=== PATIENT | male | born 1950 | race Asian ===

== ENCOUNTER 2018-03-17 14:01 | Emergency (ER) | payer MEDICARE, OTHER ==
[~2018-03-17] VITALS: Ht 170.2 cm; Wt 118.2 kg
[~2018-03-17 14:01] MED LIST: ASPI81TA87 PO; ATEN-187 PO; FURO40TA5 PO; GLYB2.5T5 PO; LISI10TA; OMEP20TA2 PO; POTA8CAP10 PO; VITAMINS
[2018-03-17 15:03] LABS: GLUCOSE,POINT OF CARE 154 MG/DL (70-110)
[2018-03-17] MEDS ORDERED: IPRATROPIUM BROMIDE 0.5 MG/2.5 ML NEB SOLUTION NEB ONE (15:15)
[2018-03-17] MEDS ORDERED: ALBUTEROL SULFATE 2.5 MG/0.5 ML NEB SOLUTION NEB ONE (15:15)
[2018-03-17] MEDS ORDERED: ACETAMINOPHEN 500 MG TABLET PO ONE (15:15)
[2018-03-17] MEDS ORDERED: CARV6 PO (15:16)
[2018-03-17] MEDS ORDERED: ATOR40TA28 PO (15:16)
[2018-03-17] MEDS ORDERED: AMLO-512 PO (15:16)
[2018-03-17] MEDS ORDERED: ALLO300 PO (15:16)
[2018-03-17] MEDS ORDERED: CLON-570 PO (15:19)
[2018-03-17] MEDS ORDERED: FAMO20 PO (15:19)
[2018-03-17] MEDS ORDERED: FLUT16H NASAL (15:19)
[2018-03-17] MEDS ORDERED: MONT10TA21 PO (15:19)
[2018-03-17] MEDS ORDERED: VITAD1000 PO (15:19)
[2018-03-17] MEDS ORDERED: LACT1CAP62 PO (15:19)
[2018-03-17] MEDS ORDERED: INSU100V SQ (15:19)
[2018-03-17] MEDS ORDERED: LORazepam 2 MG/ML VIAL IM ONE (15:30)
[2018-03-17 15:51] LABS: BASOPHILS % (AUTO) 2.2 % (0.0-2.0); EOSINOPHILS % (AUTO) 12.5 % (1.0-6.0); HEMATOCRIT 41.2 % (41-53); HEMOGLOBIN 13.4 g/dL (13.5-17.5); LYMPHOCYTES # (AUTO) 1.7 K/uL (1.0-4.8); LYMPHOCYTES % (AUTO) 19.2 % (22.0-44.0); MEAN CORPUSCULAR HEMOGLOBIN 27.9 pg (26.0-34.0); MEAN CORPUSCULAR HGB CONC 32.5 G/dL (31.0-37.0); MEAN CORPUSCULAR VOLUME 86 fL (80-100); MONOCYTES # (AUTO) 0.7 K/uL (0.1-1.0); MONOCYTES % (AUTO) 8.3 % (2.0-9.0); NEUTROPHILS # (AUTO) 5.2 K/uL (1.8-7.7); NEUTROPHILS % (AUTO) 57.8 % (40.0-70.0); PLATELET COUNT (AUTO) 345 K/uL (150-450)
[2018-03-17 16:01] LABS: CALCIUM, TOTAL 8.1 mg/dL (8.8-10.5); CREATININE 4.05 mg/dL (0.60-1.30); POTASSIUM 4.2 mmol/L (3.5-5.1)
[2018-03-17 16:07] LABS: BILIRUBIN,TOTAL 0.4 mg/dL (0.1-1.0); TOTAL PROTEIN, SERUM 7.3 g/dL (6.4-8.2)
[2018-03-17 16:12] LABS: TROPONIN I 0.05 ng/mL (0.00-0.05)
[2018-03-17] MEDS ORDERED: DiphenhydrAMINE HCL 50 MG/ML VIAL IM ONE (16:15)
[2018-03-17] MEDS ORDERED: HALOPERIDOL LACTATE 5 MG/ML VIAL IM ONE (16:15)
[2018-03-17 17:48] LABS: APPEARANCE,URINE CLEAR (CLEAR); BILIRUBIN,URINE NEGATIVE (NEGATIVE); GLUCOSE, URINE (UA) 250 mg/dL (NEGATIVE); KETONES,URINE TRACE mg/dL (NEGATIVE); LEUKOCYTE ESTERASE ,URINE NEGATIVE (NEGATIVE); NITRATE,URINE NEGATIVE (NEGATIVE); OCCULT BLOOD,URINE LARGE (NEGATIVE); PROTEIN,URINE SEE CONFIRM (NEGATIVE); UROBILINOGEN,URINE 0.2 mg/dL (<=1.0)
[2018-03-17 17:55] LABS: SULFOSALICYLIC ACID,URINE 4+ (Negative)
[2018-03-17 17:56] LABS: BACTERIA,URINE Few /HPF (None Seen); SQUAMOUS EPITHELIAL CELL,UR Few /LPF (None Seen)
[2018-03-17 18:10] LABS: AMPHET/METH SCREEN,URINE NEGATIVE (NEGATIVE); BARBITURATE SCREEN, URINE NEGATIVE (NEGATIVE); BENZODIAZEPINES SCREEN,URINE NEGATIVE (NEGATIVE); CANNABINOID SCREEN,URINE NEGATIVE (NEGATIVE); COCAINE SCREEN,URINE NEGATIVE (NEGATIVE); METHADONE SCREEN, URINE NEGATIVE (NEGATIVE); OPIATE SCREEN,URINE POSITIVE (NEGATIVE); PHENCYCLIDINE SCREEN,URINE NEGATIVE (NEGATIVE)
[2018-03-17 19:26] VITALS: BP 152/89
== END 2018-03-17 20:15 | disposition home or self-care (01) ==
LOC: EMS 14:04
DX: R41.0 Disorientation, unspecified (principal); T50.995A Adverse effect of other drugs, medicaments and biological substances, initial encounter; E11.9 Type 2 diabetes mellitus without complications; E78.00 Pure hypercholesterolemia, unspecified; I11.0 Hypertensive heart disease with heart failure; I50.9 Heart failure, unspecified; I25.10 Atherosclerotic heart disease of native coronary artery without angina pectoris; J45.909 Unspecified asthma, uncomplicated; K21.9 Gastro-esophageal reflux disease without esophagitis; E78.5 Hyperlipidemia, unspecified; H92.03 Otalgia, bilateral; M54.9 Dorsalgia, unspecified; Z79.4 Long term (current) use of insulin; Z79.899 Other long term (current) drug therapy; Y92.89 Other specified places as the place of occurrence of the external cause; Z87.891 Personal history of nicotine dependence
CPT/HCPCS: 36415; 70450; 71045; 80053; 80307; 81001; 82140; 82962; 83880; 84484; 85025; 93005; 94640; 96372; 99285; J1200; J1630; J2060